=== PATIENT | female | born 1965 | race Native Hawaiian/Other Pacific Islander ===

== ENCOUNTER 2018-08-29 11:09 | Outpatient (CLI) | payer BC | END 2018-08-29 19:42 | disposition home or self-care (01) | LOC: LABW 11:09 | DX: J40 Bronchitis, not specified as acute or chronic (principal) | CPT/HCPCS: 36415; 82103 ==

== ENCOUNTER 2018-09-16 14:37 | Outpatient (CLI) | payer BC | END 2018-09-16 22:55 | disposition home or self-care (01) | LOC: LABW 14:37 | DX: R05 Cough (principal) | CPT/HCPCS: 36415; 85379; 86615 ==